=== PATIENT | male | born 2000 | race Caucasian/White ===

== ENCOUNTER 2021-07-29 23:07 | Emergency (ER) | payer OTHER ==
[~2021-07-29] VITALS: Ht 188 cm; Wt 93.2 kg
[2021-07-29 23:08] VITALS: BP 129/79
== END 2021-07-30 02:12 | disposition home or self-care (01) ==
LOC: M ED 23:07
DX: J06.9 Acute upper respiratory infection, unspecified (principal); F17.210 Nicotine dependence, cigarettes, uncomplicated
CPT/HCPCS: 87880; 99282; U0003

== ENCOUNTER 2021-10-18 22:09 | Emergency (ER) | payer OTHER ==
[~2021-10-18] VITALS: Ht 188 cm; Wt 98.6 kg
[2021-10-18 22:10] VITALS: BP 148/74
[2021-10-18 23:22] LABS: HEMOGLOBIN 16.3 g/dl (13.5-17.5); MEAN CORPUSCULAR HEMOGLOBIN 30.4 pg (27.0-33.0); MEAN CORPUSCULAR HGB CONC 34.7 g/dl (32.0-36.5); MEAN CORPUSCULAR VOLUME 87.7 fl (80.0-96.0); PLATELET COUNT, AUTOMATED 208 10^3/uL (150-450); RED BLOOD COUNT 5.36 10^6/uL (4.30-6.10); WHITE BLOOD COUNT 8.1 10^3/uL (4.0-10.0)
[2021-10-18 23:58] LABS: RSV AMPLIFICATION NEGATIVE (NEGATIVE)
[2021-10-18 23:59] LABS: ACETAMINOPHEN LEVEL < 2.0 UG/ML (10.0-30.0); ALBUMIN 4.2 GM/DL (3.2-5.2); ALT/SGPT 31 U/L (12-78); BILIRUBIN,DIRECT < 0.1 MG/DL (0.0-0.2); BILIRUBIN,TOTAL 0.2 MG/DL (0.2-1.0); BLOOD UREA NITROGEN 18 MG/DL (7-18); CARBON DIOXIDE LEVEL 22 MEQ/L (21-32); CHLORIDE LEVEL 111 MEQ/L (98-107); CREATININE FOR GFR 0.85 MG/DL (0.70-1.30); ETHYL ALCOHOL (ETHANOL) 0.062 % (0.000-0.010); GLOMERULAR FILTRATION RATE > 60.0 (>60); GLUCOSE, FASTING 94 MG/DL (70-100); POTASSIUM SERUM 3.8 MEQ/L (3.5-5.1); SALICYLATE LEVEL < 1.7 MG/DL (5.0-30.0); SODIUM LEVEL 144 MEQ/L (136-145); TOTAL PROTEIN 7.4 GM/DL (6.4-8.2)
== END 2021-10-19 00:19 | disposition home or self-care (01) ==
LOC: M ED 22:09
DX: F33.9 Major depressive disorder, recurrent, unspecified (principal)

== ENCOUNTER 2021-12-12 21:24 | Emergency (ER) | payer OTHER ==
[~2021-12-12] VITALS: Ht 190.5 cm; Wt 102.9 kg
[2021-12-12 22:30] LABS: BASO % 0.3 % (0.0-1.0); EOS # 0.2 10^3/uL (0.0-0.5); EOS % 1.8 % (0.0-3.0); HEMATOCRIT 49.9 % (42.0-52.0); HEMOGLOBIN 16.8 g/dl (13.5-17.5); MEAN CORPUSCULAR HEMOGLOBIN 29.7 pg (27.0-33.0); MEAN CORPUSCULAR HGB CONC 33.7 g/dl (32.0-36.5); MEAN CORPUSCULAR VOLUME 88.2 fl (80.0-96.0); MONO # 0.8 10^3/uL (0.0-0.8); MONO % 8.8 % (2.0-8.0); NEUTROPHILS # 4.8 10^3/uL (1.5-8.5); NEUTROPHILS % 54.9 % (36.0-66.0); PLATELET COUNT, AUTOMATED 220 10^3/uL (150-450); RED BLOOD COUNT 5.66 10^6/uL (4.30-6.10); WHITE BLOOD COUNT 8.7 10^3/uL (4.0-10.0)
[2021-12-12 22:53] LABS: ALBUMIN 4.3 GM/DL (3.2-5.2); ALT/SGPT 36 U/L (12-78); BILIRUBIN,DIRECT < 0.1 MG/DL (0.0-0.2); BILIRUBIN,TOTAL 0.3 MG/DL (0.2-1.0); BLOOD UREA NITROGEN 11 MG/DL (7-18); CALCIUM LEVEL 9.9 MG/DL (8.5-10.1); CARBON DIOXIDE LEVEL 29 MEQ/L (21-32); CHLORIDE LEVEL 106 MEQ/L (98-107); CREATININE FOR GFR 1.09 MG/DL (0.70-1.30); GLOMERULAR FILTRATION RATE > 60.0 (>60); GLUCOSE, FASTING 85 MG/DL (70-100); LIPASE 84 U/L (73-393); SODIUM LEVEL 142 MEQ/L (136-145); TOTAL PROTEIN 7.4 GM/DL (6.4-8.2)
[2021-12-13 06:05] VITALS: BP 129/84
[2021-12-13] MEDS ORDERED: FAMO20TA PO (06:38)
[2021-12-13] MEDS ORDERED: FAMOTIDINE 20 MG TAB PO ONE (06:40)
== END 2021-12-13 06:52 | disposition home or self-care (01) ==
LOC: M ED 21:24
DX: K29.70 Gastritis, unspecified, without bleeding (principal); K29.80 Duodenitis without bleeding

== ENCOUNTER 2022-04-12 21:00 | Emergency (ER) | payer OTHER ==
[~2022-04-12] VITALS: Ht 190.5 cm; Wt 118.8 kg
[2022-04-12 21:00] VITALS: BP 146/90
[~2022-04-12 21:00] MED LIST: FAMO20TA PO
== END 2022-04-13 01:10 | disposition left against medical advice (07) ==
LOC: M ED 21:00
DX: Z53.21 Procedure and treatment not carried out due to patient leaving prior to being seen by health care provider (principal)

== ENCOUNTER 2023-01-22 12:14 | Emergency (ER) | payer OTHER ==
[~2023-01-22] VITALS: Ht 190.5 cm; Wt 126.7 kg
[2023-01-22] MEDS ORDERED: AMPICILLIN SOD/SULBACTAM SOD 3 GM in D5W MINI-BAG PLUS 100 ML IV ONE (16:20)
[2023-01-22 17:52] LABS: BASO # 0.1 10^3/uL (0.0-0.2); BASO % 0.7 % (0.0-1.0); EOS # 0.1 10^3/uL (0.0-0.5); EOS % 0.5 % (0.0-3.0); HEMATOCRIT 46.5 % (42.0-52.0); HEMOGLOBIN 15.6 g/dl (13.5-17.5); LYMPH # 4.2 10^3/uL (1.5-5.0); LYMPH % 43.8 % (24.0-44.0); MEAN CORPUSCULAR HEMOGLOBIN 29.3 pg (27.0-33.0); MEAN CORPUSCULAR HGB CONC 33.5 g/dl (32.0-36.5); MEAN CORPUSCULAR VOLUME 87.4 fl (80.0-96.0); MONO # 0.9 10^3/uL (0.0-0.8); MONO % 9.2 % (2.0-8.0); NEUTROPHILS # 4.3 10^3/uL (1.5-8.5); NEUTROPHILS % 45.6 % (36.0-66.0); PLATELET COUNT, AUTOMATED 240 10^3/uL (150-450); RED BLOOD COUNT 5.32 10^6/uL (4.30-6.10); WHITE BLOOD COUNT 9.5 10^3/uL (4.0-10.0)
[2023-01-22] MEDS ORDERED: ISOVUE-370 76% 100ML VIAL As Ordered ONE (18:16)
[2023-01-22] MEDS ORDERED: MED REC IN PROGRESS XX SCH (18:45)
[2023-01-22] MEDS ORDERED: HOME MED LIST COMPLETE! XX SCH (18:55)
[2023-01-22] MEDS ORDERED: CLEO300C2 PO ×2 (20:20→20:54)
[2023-01-22] MEDS ORDERED: IBUPROFEN 600MG TAB PO ONE (20:35)
[2023-01-22 20:46] VITALS: BP 126/90; TEMP 98.8; O2SAT 98
== END 2023-01-22 20:45 | disposition home or self-care (01) ==
LOC: M ED 12:14
DX: J02.9 Acute pharyngitis, unspecified (principal)
CPT/HCPCS: 70491; 80047; 83605; 85025; 87040; 87635; 96365; 99284; J0295; Q9967